=== PATIENT | female | born 1975 | race Caucasian/White ===

== ENCOUNTER → 2022-08-08 | Outpatient (CLI) | payer OTHER, SELFPAY ==
--- NOTE | 2022-08-08 18:00 | CT_ITS ---
STUDY: CT ABDOMEN AND PELVIS WITH CONTRAST REASON FOR EXAM: Female, 47 years old. RLQ abd pain RADIATION DOSAGE (If Supplied By Facility): CTDIvol = ( 7.33 ) mGy, DLP = ( 514.57 ) mGycm TECHNIQUE: Transaxial images were obtained from the dome of the diaphragm to the symphysis pubis with oral contrast. IV 100mL Isovue-300 was administered. Sagittal and coronal images were reconstructed. Individualized dose optimization techniques were used for this CT. COMPARISON: None. FINDINGS: The visualized lung bases are unremarkable. The visualized portions of the heart are within normal limits. There are bilateral breast implants. Normal liver. Normal gallbladder and extrahepatic biliary system. There is 2.1 cm hypodensity with probable cyst or hemangioma of the spleen. Normal pancreas. Normal bilateral adrenal glands. Normal right kidney. Normal left kidney. Normal visualized stomach. Normal small intestine. Normal colon. The appendix is visualized and appears normal. Normal abdominal aorta. Normal inferior vena cava. Normal retroperitoneum. Normal urinary bladder. There is 2.5 cm hypodense mass of the posterior myometrium compatible with fibroid. There is no free fluid in the abdomen or pelvis. Normal abdominal wall. Normal osseous structures. CT/Abdomen/Pelvis WITH Contrast IMPRESSION: Uterine fibroid. No obstruction. Normal appendix. Electronically Signed: Mike Washington MD at 21:44 EDT ,
== END | disposition home or self-care (01) ==
LOC: CT 17:58
PROVIDERS: Referring Provider Surgery; Visit Provider Surgery
DX: R10.31 Right lower quadrant pain (principal)
CPT/HCPCS: 74177; Q9967

== ENCOUNTER 2022-12-22 01:15 | Emergency (ER) | payer OTHER, SELFPAY ==
[2022-12-22 01:16] VITALS: BP 148/68; PULSE 89; RESP 16; TEMP 36.3; O2SAT 100; BMI 24.5
[2022-12-22] MEDS: dexAMETHasone 10 MG/ML Vial PO.IVFORM (01:46)
--- NOTE | 2022-12-22 02:00 | RAD_ITS ---
EXAM: XR SOFT TISSUE NECK CLINICAL INDICATION: pain / ? Epiglottitis TECHNIQUE: Frontal and lateral views of the soft tissues of the neck. COMPARISON: No relevant prior studies available. FINDINGS: AIRWAY: Unremarkable. Grossly patent. SOFT TISSUES: Unremarkable. No radiopaque foreign body. No pathologic thickening or enlargement of the epiglottis. RAD/Neck for Soft Tissue IMPRESSION: Negative neck x-rays. Electronically Signed: Ubaldo Linton MD at 2:39 EDT ,
--- NOTE | 2022-12-22 02:35 | EX.ED.DYSGE1 ---
HPI History of Present Illness Chief Complaint: Sore Throat Informant: patient and spouse/S.O. Narrative Narrative: Patient is a 47-year-old female with no significant past medical history. She states that 3 to 4 days ago she took a home COVID test which was positive. She states she was also exposed to her daughter who recently tested positive for strep throat. The patient states that as the days the past she feels that her sore throat is worsened and she has been taking [id number] Tylenol and Motrin and salt water gargles without any symptom improvement. She states that she had concern she could be progressing to epiglottitis and with this comes in for evaluation. [facility] Medical History Right lower quadrant abdominal pain Home Medications calcium carbonate 600 mg calcium (1,500 mg) tablet (Calcium) 600 mg PO DAILY 08/01/22 [History Last Taken Unknown] cholecalciferol (vitamin D3) 25 mcg (1,000 unit) capsule 25 mcg PO DAILY 08/01/22 [History Last Taken Unknown] fexofenadine 60 mg tablet (Patt Allergy) 60 mg PO BID 08/01/22 [History Last Taken Unknown] dexamethasone 6 mg tablet 6 mg PO DAILY 10 days #10 tabs 12/22/22 [Rx Last Taken Unknown] Allergy/AdvReac Type Severity Reaction Status Date / Time vibegron [From Gemtesa] Allergy Mild Other Verified 12/22/22 01:17 buspirone [From BuSpar] AdvReac Mild Nausea Verified 12/22/22 01:17 Family History (Updated 08/01/22 @ 13:44 by Shanae Dawn) Father Heart disease Hypertension Mother Hypertension Heart disease Social History Smoking Status: Never smoker [facility] ED Constitutional Constitutional ED: Reports chills, fever(s) and subjective ENT ENT ED: Reports rhinorrhea and sore throat Cardiovascular Cardiovascular: Denies chest pain Respiratory/Chest Respiratory/Chest: Denies cough or dyspnea Gastrointestinal Gastrointestinal: Denies abdominal pain, diarrhea, nausea or vomiting Genitourinary Genitourinary ED: Denies dysuria Musculoskeletal Musculoskeletal: Reports myalgias and neck pain Integumentary Denies rash Neurologic Neurologic: Reports headache(s) Hematologic/Lymphatic Hematologic/Lymphatic: Denies easy bleeding or easy bruising EXAM Physical Exam Const Vital Signs: 12/22/22 01:16 Temperature 97.3 F L Temperature Source Temporal Pulse Rate 89 Respiratory Rate 16 Blood Pressure 148/68 H Blood Pressure Mean 94 Pulse Ox 100 Oxygen Delivery Method Room Air Positive well nourished and well developed General Appearance ED: well developed HEENT Reports moist mucous membranes HEENT Narrative: The patient has cobblestoning the posterior pharynx consistent with sinus drainage but there is no secondary changes to suggest infection there is no airway edema or compromise. No trismus no change in voice or difficulty with secretions Eyes PERRL and EOMs intact bilaterally General Eye ED: Negative for scleral icterus Neck supple Neck Narrative: Tender anterior cervical lymphadenopathy No crepitance palpated Resp normal respiratory effort and clear to auscultation bilaterally Cardio regular rate and regular rhythm Extremity normal to inspection Neuro oriented x3 and CN's II-XII intact bilaterally Sensorium / Orientation: alert Motor Exam: strength 5/5 throughout Psych mental status grossly normal Skin no rashes or lesions noted General Skin Exam: Negative for jaundice MDM MDM MDM Narrative Medical decision making narrative: Patient presented to the ER afebrile and in no acute distress. She was not tripoding there is no muffled or change voice she did not have any difficulty with secretions and there was no brawny edema in the submental space going against underlying epiglottitis as a cause of her symptoms. She already has known COVID from an outpatient testing and therefore do not feel need to recheck this. However as she was recently exposed to strep throat a rapid strep swab was obtained. The rapid swab was negative which does correlate with her physical exam. At this time the patient's x-ray does not reveal changes of acute epiglottitis her physical exam does not suggest this either and there is a cause of her sore throat and the fact she has known COVID. As she is not in respiratory distress and work-up reveals normal epiglottis she can be discharged home and started on Decadron for symptom control History & Record Review Discussion w/independent historian: Patient and Significant other Radiography Diagnostic Testing: Clinical Impression(s) from Imaging Studies Soft Tissue Neck X-Ray 12/22/22 02:00 IMPRESSION: Negative neck x-rays. Electronically Signed: Ubaldo Linton MD at 2:39 EDT , Soft tissue neck x-ray as interpreted by the emergency medicine physician reveals no signs of epiglottitis airway narrowing or foreign body Discharge Plan Triage Chief Complaint: Sore Throat ED Provider: Pako Harper Dx/Rx/DC Orders Clinical Impression: COVID-19, Pharyngitis Instructions: Symptoms of COVID-19 Infection, ED Pharyngitis, Viral Prescriptions: New dexamethasone 6 mg tablet 6 mg PO DAILY 10 Days Qty: 10 0RF No Action cholecalciferol (vitamin D3) 25 mcg (1,000 unit) capsule 25 mcg PO DAILY calcium carbonate [Calcium 600] 600 mg calcium (1,500 mg) tablet 600 mg PO DAILY fexofenadine [Patt Allergy] 60 mg tablet 60 mg PO BID Primary Care Provider: Care Physician,No Primary Referrals: Tamela Mathew DO [Med Staff - Color Weigher] - Care Physician,No Primary [Primary Care Provider] - Activity Restrictions/Additional Instructions: Your rapid strep test was negative but the culture is still pending. If the culture is positive you will be notified by phone. Your x-ray shows no signs of otitis and your physical exam does not correlate with epiglottitis either indicating your sore throat is secondary to COVID. Continue with your treatments at home that you have been doing but add the dexamethasone/steroid to help reduce inflammatory processes which may help reduce your symptoms and return to the ER should you have any further concerns. Disposition Disposition: Home, Self Care
[2022-12-22 03:02] VITALS: PULSE 66; RESP 16; O2SAT 99
== END 2022-12-22 03:03 | disposition home or self-care (01) ==
PROVIDERS: Emergency Provider Emergency Medicine; Visit Provider Emergency Medicine
DX: U07.1 COVID-19 (principal); J02.9 Acute pharyngitis, unspecified
CPT/HCPCS: 70360; 87880; 99283

== ENCOUNTER 2022-12-25 08:32 | Emergency (ER) | payer OTHER, SELFPAY ==
[2022-12-25 08:32] VITALS: BP 110/87; PULSE 64; RESP 14; TEMP 36.4; O2SAT 100; BMI 23.3
--- NOTE | 2022-12-25 08:49 | RAD_ITS ---
STUDY: X-RAY CHEST REASON FOR EXAM: Female, 47 years old. Dyspnea TECHNIQUE: Single AP portable view of the chest. COMPARISON: None. FINDINGS: EKG electrodes are seen. The lungs are clear and expanded. There is no demonstrated pleural abnormality. Normal size heart. Normal mediastinum and howie. Normal visualized pulmonary arteries. Normal visualized aortic arch and descending thoracic aorta. Normal visualized thoracic spine. Normal visualized ribs, clavicles, and shoulders. There is no demonstrated abnormality of the visualized soft tissue structures of the upper abdomen. RAD/Chest 1 View (Portable) IMPRESSION: Normal x-ray examination of the chest. Electronically Signed: Semaj Garduno MD at 9:38 EDT ,
--- NOTE | 2022-12-25 08:49 | EKG12_ITS ---
Test Reason : BACK PAIN Blood Pressure : / mmHG Vent. Rate : 064 BPM Atrial Rate : 064 BPM P-R Int : 110 ms QRS Dur : 096 ms QT Int : 390 ms P-R-T Axes : 047 033 033 degrees QTc Int : 402 ms Sinus rhythm with short VT Incomplete right bundle branch block Nonspecific T wave abnormality Abnormal ECG Confirmed by CARLOS OWEN, LINDA ([id number]), makeup editor JOHNNY PILLAI ([id number]) on 12/31/2022 8:59:52 AM Referred By: Confirmed By:DEBBI GONZALEZ MD
--- NOTE | 2022-12-25 08:50 | EX.ED.DYSGE1 ---
HPI History of Present Illness Chief Complaint: General Illness Detail of Chief Complaint: Upper back pain and shortness of breath Informant: patient Narrative Narrative: Patient presents the emergency department with complaint of upper back pain and some shortness of breath. Patient states that she was diagnosed with COVID-19 6 days ago and has had symptoms for about 7 days. Patient also recently seen in the ER and started Decadron for sore throat. Patient states that she felt somewhat flushed after taking it at home and stopped the Decadron. She states she has had a little bit increase in cough and feels more winded at times. At 1 point she had her heart rate dropped into the 50s but she is not sure if that is unusual for her as she really did not know what her resting heart rate was. She denies fevers. Cough mostly nonproductive. PFSH PFS Medical History Right lower quadrant abdominal pain Home Medications calcium carbonate 600 mg calcium (1,500 mg) tablet (Calcium) 600 mg PO DAILY 08/01/22 [History Last Taken Unknown] cholecalciferol (vitamin D3) 25 mcg (1,000 unit) capsule 25 mcg PO DAILY 08/01/22 [History Last Taken Unknown] fexofenadine 60 mg tablet (Patt Allergy) 60 mg PO BID 08/01/22 [History Last Taken Unknown] dexamethasone 6 mg tablet 6 mg PO DAILY 10 days #10 tabs 12/22/22 [Rx Last Taken Unknown] levofloxacin 750 mg tablet 750 mg PO DAILY #4 tabs 12/25/22 [Rx Last Taken Unknown] Allergy/AdvReac Type Severity Reaction Status Date / Time vibegron [From Gemtesa] Allergy Mild Other Verified 12/22/22 01:17 buspirone [From BuSpar] AdvReac Mild Nausea Verified 12/22/22 01:17 Family History Father Heart disease Hypertension Mother Hypertension Heart disease Social History Smoking Status: Never smoker ROS ROS ED Review of Systems ROS Unobtainable: other Constitutional Constitutional ED: Reports lethargy; Denies chills, fever(s), sweats or weight loss Eyes Eyes: Denies blurry vision, change in vision or diplopia ENT ENT ED: Denies rhinorrhea or sore throat Cardiovascular Cardiovascular: Denies chest pain, orthopnea or racing heartbeat Respiratory/Chest Respiratory/Chest: Reports cough, dyspnea and dyspnea on exertion; Denies orthopnea or sputum Gastrointestinal Gastrointestinal: Denies abdominal pain, diarrhea, nausea or vomiting Genitourinary Genitourinary ED: Denies dysuria, hematuria or urinary frequency Musculoskeletal Musculoskeletal: Reports back pain; Denies arthralgias, myalgias or neck pain Integumentary Denies abscess, Abrasions or rash Neurologic Neurologic: Denies headache(s) or weakness Psychiatric Psychiatric: Denies anxiety, depression or suicidal thoughts Endocrine Endocrinology: Denies polydipsia, polyphagia or polyuria Hematologic/Lymphatic Hematologic/Lymphatic: Denies easy bleeding, easy bruising or lymphadenopathy Allergic/Immunologic Allergic/Immunologic ED: Denies mouth swelling, tongue swelling or urticaria EXAM Physical Exam Const Vital Signs: 12/25/22 08:32 Temperature 97.6 F L Temperature Source Temporal Pulse Rate 64 Respiratory Rate 14 Blood Pressure 110/87 H Blood Pressure Mean 94 Pulse Ox 100 Oxygen Delivery Method Room Air Positive well nourished and well developed General Appearance ED: well developed and NAD HEENT Reports TM's clear and moist mucous membranes normocephalic and atraumatic; Negative for trauma or tenderness Tympanic Membrane ED: Yes TM's clear Eyes PERRL and EOMs intact bilaterally General Eye ED: Negative for pale conjunctiva or scleral icterus Neck no lymphadenopathy, supple and no JVD General: Negative for tenderness Chest Wall inspection of chest normal and palpation of chest normal Chest: Negative for tenderness Resp normal respiratory effort and clear to auscultation bilaterally Effort and Inspection: Negative for respiratory distress or pain with movement Auscultation: Negative for rhonchi, wheezes or diminished lung sounds Cardio regular rate, regular rhythm, S1 normal heart sound, S2 normal heart sound and no murmurs Peripheral Pulses: pulses 2+ throughout GI normal to inspection, nondistended, normoactive bowel sounds, soft to palpation, non-tender, non-distended and no masses Back/Spine no CVA tenderness and no thoracic nor lumbar tenderness Extremity normal to inspection General Extremety ED: Negative for edema General Extremity: Negative for edema Neuro oriented x3, CN's II-XII intact bilaterally, no sensory deficits noted and gait normal Sensorium / Orientation: awake, alert, oriented to person, oriented to place and oriented to time Motor Exam: strength 5/5 throughout and strength abnormal Psych mental status grossly normal Skin no rashes or lesions noted and no wounds MDM MDM MDM Narrative Medical decision making narrative: Patient presents with COVID and concern now for pneumonia. Her daughter was recently diagnosed with strep pneumonia and patient concerned that she may be developing pneumonia. Patient had an IV line established on arrival. CBC with differential obtained for normal white count of 9.1 with hemoglobin of 13 and platelet count of 272. D-dimer was normal at less than 0.27. Chemistries unremarkable. Troponin was less than 3. EKG obtained arrival showed a sinus rhythm with a rate of [address] changes. 1 view chest x-ray obtained interpreted by myself as no evidence of infiltrate or acute disease process. Official report from radiology pending. This point patient will be discharged to home. I will cover her with Levaquin for 5 days. Advised to follow-up with her primary care physician within next 3 to 5 days. Patient to return if increasing shortness of breath or condition should worsen anyway. Lab Data Attestation: I reviewed the patient's lab results. Labs: Laboratory Results - last 24 hr 12/25/22 09:00 WBC 9.1 RBC 4.50 Hgb 13.2 Hct 41.1 MCV 91.3 MCH 29.3 MCHC 32.1 RDW Std Deviation 40.1 RDW Coeff of Jazmin 11.9 Plt Count 272 MPV 9.6 Immature Gran % (Auto) 0.300 Neut % (Auto) 47.1 Lymph % (Auto) 39.8 [place] % (Auto) 11.5 H Eos % (Auto) 1.0 Baso % (Auto) 0.3 Absolute Neuts (auto) 4.3 Absolute Lymphs (auto) 3.61 Nucleated RBC % 0 D-Dimer Quant (PE/DVT) < 0.27 L Sodium 138 Potassium 3.6 Chloride 104 Carbon Dioxide 30.0 Anion Gap 4 L BUN 12 Creatinine 0.83 Estim Creat Clear Calc 72.36 Est GFR (MDRD) Af Amer 94 Est GFR (MDRD) Non-Af 78 BUN/Creatinine Ratio 14.4 Glucose 88 Calcium 9.1 Troponin I High Sens < 3 L Radiography Diagnostic Testing: Clinical Impression(s) from Imaging Studies Chest X-Ray 12/25/22 08:49 IMPRESSION: Normal x-ray examination of the chest. Electronically Signed: Semaj Garduno MD at 9:38 EDT , 1 view chest x-ray obtained interpreted by myself as no evidence of infiltrate or pneumothorax or acute disease process. Official report from radiology pending. EKG Initial EKG: Attestation: I personally reviewed and interpreted this EKG as follows: Comments: Sinus rhythm with a rate of [address] changes Discharge Plan Triage Chief Complaint: General Illness ED Provider: Davin Lizama Dx/Rx/DC Orders Clinical Impression: COVID-19, Bronchitis Instructions: Caring for Someone Who Has COVID-19, ED Upper Resp Infec Abx Tx Prescriptions: New levofloxacin 750 mg tablet 750 mg PO DAILY Qty: 4 0RF No Action cholecalciferol (vitamin D3) 25 mcg (1,000 unit) capsule 25 mcg PO DAILY calcium carbonate [Calcium 600] 600 mg calcium (1,500 mg) tablet 600 mg PO DAILY fexofenadine [Patt Allergy] 60 mg tablet 60 mg PO BID dexamethasone 6 mg tablet 6 mg PO DAILY 10 Days Qty: 10 0RF Primary Care Provider: Care Physician,No Primary Referrals: Damien Warren MD [Med Staff - Active Staff] - 3-5 Days Care Physician,No Primary [Primary Care Provider] - Disposition Disposition: Home, Self Care Discharge Date/Time: 12/25/22 10:55
--- NOTE | 2022-12-25 08:52 | NURSING ---
NO OLD EKGS
[2022-12-25 09:12] LABS: Absolute Lymphocyte Count 3.61 X10^3/uL (0.83-4.51); Absolute Neutrophil Count 4.3 X10^3/uL (2.0-7.7); Basophil# 0.03 X10^3/uL; Basophil% 0.3 % (0-1); Eosinophil# 0.09 X10^3/uL; Hematocrit 41.1 % (37-47); Hemoglobin 13.2 g/dL (12.0-15.0); Lymphocyte # 3.61 X10^3/ul (0.83-4.51); Lymphocyte % 39.8 % (19-41); Mean Corp Hgb Conc 32.1 g/dL (32-36); Mean Corpuscular Hgb 29.3 pg (27.0-32.0); Mean Corpuscular Volume 91.3 fL (81-99); Mean Platelet Vol. 9.6 fl (6.2-12.0); Monocyte# 1.04 X10^3/uL; Monocyte% 11.5 % (0-10); NRBC Flagged by Analyzer 0 % (0-5); Neutrophil # 4.28 X10^3/uL (2.7-7.7); Neutrophil % 47.1 % (47-70); Platelet Count 272 K/mm3 (150-450); RBC Distribution Width CV 11.9 % (11.6-14.6); RBC Distribution Width SD 40.1 fl (35.1-43.9); White Blood Count 9.1 K/mm3 (4.4-11.0)
[2022-12-25 09:36] LABS: Anion Gap 4 (5-15); BUN 12 mg/dL (7-18); BUN/Creat Ratio 14.4 RATIO (10-20); Calcium,Total 9.1 mg/dL (8.5-10.1); Chloride 104 mmol/L (98-107); Creatinine, Serum 0.83 mg/dL (0.55-1.02); EST Glomerular Filtration Rate 78 mL/min (>60); Est Glom Filt Rate - Afr Amer 94 mL/min (>60); Estimated Creatinine Clearance 72.36 ml/min; Glucose 88 mg/dL (74-106); Potassium 3.6 mmol/L (3.5-5.1); Sodium Level 138 mmol/L (136-145); Troponin-I HS < 3 pg/mL (3.0-54.0)
[2022-12-25 09:40] LABS: D-Dimer Quantitative (DVT/PE) < 0.27 FEU/ug/m (0.27-0.49)
[2022-12-25] MEDS: levoFLOXacin 750 MG Tablet PO (10:39)
== END 2022-12-25 10:55 | disposition home or self-care (01) ==
PROVIDERS: Emergency Provider Emergency Medicine; Visit Provider Emergency Medicine
DX: U07.1 COVID-19 (principal); J40 Bronchitis, not specified as acute or chronic
CPT/HCPCS: 71045; 80048; 84484; 85025; 85379; 93005; 99283; A4216

== ENCOUNTER → 2023-09-17 | Outpatient (CLI) | payer OTHER, SELFPAY | END | disposition home or self-care (01) | LOC: LABSPEC 15:35 | PROVIDERS: Referring Provider Nurse Practitioner Women's Health; Visit Provider Nurse Practitioner Women's Health | DX: N89.8 Other specified noninflammatory disorders of vagina (principal) | CPT/HCPCS: 87070; 87086; 87205 ==